=== PATIENT | male | born 1965 | race African-American/Black ===

== ENCOUNTER 2018-05-02 07:05 | Emergency (ER) | payer MEDICAID ==
[~2018-05-02] VITALS: Ht 177.8 cm; Wt 80.0 kg
[2018-05-02 14:48] LABS: *AMPHETAMINES SCREEN URINE NEGATIVE (NEGATIVE); *BARBITURATES SCREEN URINE NEGATIVE (NEGATIVE); *BENZODIAZEPINES SCREEN URINE NEGATIVE (NEGATIVE); *COCAINE SCREEN URINE PRESUMTIVE POSITIVE (NEGATIVE); METHADONE URINE SCREEN NEGATIVE (NEGATIVE); OPIATES URINE SCREEN NEGATIVE (NEGATIVE)
[2018-05-02 14:49] LABS: CANNABINOID URINE SCREEN NEGATIVE (NEGATIVE); PHENCYCLIDINE URINE SCREEN PRESUMTIVE POSITIVE (NEGATIVE)
[2018-05-02 15:09] VITALS: BP 139/76
== END 2018-05-02 15:13 | disposition home or self-care (01) ==
LOC: ER 07:05
DX: F10.129 Alcohol abuse with intoxication, unspecified (principal); Y90.9 Presence of alcohol in blood, level not specified
CPT/HCPCS: 70450; 80305; 99284; Z7610

== ENCOUNTER 2018-11-25 04:05 | Emergency (ER) | payer OTHER, MEDICAID ==
[~2018-11-25] VITALS: Ht 170.2 cm; Wt 101.0 kg
[2018-11-25 04:43] VITALS: BP 105/60
[2018-11-25] MEDS ORDERED: CEFAZOLIN 1000MG PREMIX 50 ML IV ONE (04:45)
[2018-11-25] MEDS ORDERED: ONDANSETRON HCL 4MG/2ML INJ IV ONE (04:45)
[2018-11-25] MEDS ORDERED: BACITRACIN ZINC OINT UDPKT TOP ONE (04:45)
[2018-11-25] MEDS ORDERED: MORPHINE SULFATE 4 MG/ML CPJ (NOT FOR IM USE) IV ONE (04:45)
[2018-11-25] MEDS ORDERED: LIDOCAINE HCL/PF 1% 10 MG/ML 5ML VIAL IJ ONE (04:45)
[2018-11-25] MEDS ORDERED: BACITRACIN 15GM TUBE TOP SCH (05:15)
== END 2018-11-25 06:19 | disposition home or self-care (01) ==
LOC: ER 04:05
DX: S51.811A Laceration without foreign body of right forearm, initial encounter (principal); I10 Essential (primary) hypertension; X99.1XXA Assault by knife, initial encounter; Y93.9 Activity, unspecified; Y92.89 Other specified places as the place of occurrence of the external cause
CPT/HCPCS: 12004; 73090; 96365; 96375; 99283; J0690; J2270; J2405; J3490; Z7610